=== PATIENT | male | born 1955 | race Two or more races ===

== ENCOUNTER 2019-12-25 16:36 | Inpatient (IN) | payer OTHER ==
[~2019-12-25] VITALS: Ht 172.7 cm; Wt 98.9 kg
[2019-12-25] MEDS ORDERED: SODIUM CHLORIDE 0.9% 500 ML IV ONE (18:06)
[2019-12-25 18:07] LABS: Basophils # (auto) 0 10 ^3/uL (0-0.2); Basophils % (auto) 0.3 % (0.0-2.0); Eosinophils # (auto) 0.1 10 ^3/uL (0-0.8); Hematocrit 44.7 % (41.0-53.0); Hemoglobin 15.3 g/dL (13.5-17.5); Lymphocytes # (auto) 3.9 10 ^3/uL (0.4-5.4); Lymphocytes % (auto) 33.7 % (10.0-50.0); Mean Corpuscular Hemoglobin 29.9 pg (28.0-32.0); Mean Corpuscular Hgb Conc. 34.3 g/dL (32.0-36.0); Mean Corpuscular Volume 87.4 fL (80.0-100.0); Monocytes # (auto) 0.9 10 ^3/uL (0-1.3); Monocytes % (auto) 7.6 % (0.0-12.0); Neutrophils # (auto) 6.7 10 ^3/uL (1.6-8.6); Neutrophils % (auto) 57.4 % (37.0-80.0); Nucleated Red Blood Cells % 0.1 %; Platelet Count (auto) 325 10^3/uL (140-450); Red Blood Cells 5.11 10^6/uL (4.5-5.90); Red Cell Distribution Width 15.3 % (11.8-14.3); White Blood Cell 11.7 10^3/uL (4.4-10.8)
[2019-12-25 18:11] LABS: Lactic Acid w/Reflex 3.2 mmol/L (0.4-2.0)
[2019-12-25 18:24] LABS: Albumin 4.2 g/dL (3.4-5.0); Potassium 3.8 mmol/L (3.5-5.1)
[2019-12-25 18:27] LABS: BUN/Creatinine Ratio 20.3; Bilirubin, Total 0.5 mg/dL (0.2-1.0); Total Protein 8.3 g/dL (6.4-8.2)
[2019-12-25] MEDS ORDERED: NITROGLYCERIN 0.4 MG SL TAB SL PRN (20:15)
[2019-12-25] MEDS ORDERED: VANCOMYCIN PER PHARMACY 0 MG IV SCH (20:30)
[2019-12-25] MEDS ORDERED: CLINDAMYCIN 600MG IV 50 ML IV ONE (20:30)
[2019-12-25] MEDS ORDERED: VANCOMYCIN 1GM/250ML 250 ML IV SCH (22:00)
[2019-12-25] MEDS: VANCOMYCIN 1GM/250ML 250 ML IV SCH (23:02)
[2019-12-25] MEDS: traZODone HCL 50 MG TAB PO SCH (23:02)
[2019-12-25] MEDS: DULoxetine HCL 30 MG CAP PO SCH (23:03)
[2019-12-25 23:24] LABS: INR 1.06 (0.9-1.15); Partial Thromboplastin Time 27.6 sec (23.64-32.05)
[2019-12-26] VITALS (7 sets, daily range): BP systolic 124–185; BP diastolic 57–97
[2019-12-26] MEDS ORDERED: LISI-648 PO (01:45)
[2019-12-26] MEDS ORDERED: DULO20CA PO (01:45)
[2019-12-26] MEDS ORDERED: TRAZ50TA2 PO (01:45)
[2019-12-26] MEDS ORDERED: ACET-1156 PO (01:45)
[2019-12-26] MEDS ORDERED: METF-370 PO (01:45)
[2019-12-26] MEDS ORDERED: ATOR20TA50 PO (01:45)
[2019-12-26 05:13] LABS: Basophils # (auto) 0 10 ^3/uL (0-0.2); Basophils % (auto) 0.2 % (0.0-2.0); Eosinophils # (auto) 0.1 10 ^3/uL (0-0.8); Eosinophils % (auto) 1.1 % (0.0-7.0); Hematocrit 38.5 % (41.0-53.0); Hemoglobin 13.4 g/dL (13.5-17.5); Lymphocytes # (auto) 2.5 10 ^3/uL (0.4-5.4); Lymphocytes % (auto) 29.4 % (10.0-50.0); Mean Corpuscular Hemoglobin 30.3 pg (28.0-32.0); Mean Corpuscular Hgb Conc. 34.7 g/dL (32.0-36.0); Mean Corpuscular Volume 87.3 fL (80.0-100.0); Monocytes # (auto) 0.6 10 ^3/uL (0-1.3); Monocytes % (auto) 7.5 % (0.0-12.0); Neutrophils # (auto) 5.2 10 ^3/uL (1.6-8.6); Neutrophils % (auto) 61.8 % (37.0-80.0); Nucleated Red Blood Cells % 0.1 %; Platelet Count (auto) 250 10^3/uL (140-450); Red Blood Cells 4.41 10^6/uL (4.5-5.90); Red Cell Distribution Width 15.2 % (11.8-14.3); White Blood Cell 8.4 10^3/uL (4.4-10.8)
[2019-12-26] MEDS: metFORMIN HYDROCHLORIDE 500 MG TAB PO SCH ×2 (08:03→17:28)
[2019-12-26] MEDS: LISINOPRIL 10 MG TAB PO SCH (09:34)
[2019-12-26] MEDS: ENOXAPARIN SOD 40 MG/0.4 ML SYRINGE SC SCH (09:34)
[2019-12-26] MEDS: VANCOMYCIN 1GM/250ML 250 ML IV SCH (17:27)
[2019-12-26] MEDS: TAMSULOSIN HYDROCHLORIDE 0.4 MG CAP PO SCH (17:27)
[2019-12-26] MEDS: ACETAMINOPHEN 325 MG TAB PO PRN (20:57)
[2019-12-26] MEDS: traZODone HCL 50 MG TAB PO SCH (21:20)
[2019-12-26] MEDS: ATORVASTATIN 20 MG TAB PO SCH (21:20)
[2019-12-26] MEDS: DULoxetine HCL 30 MG CAP PO SCH (21:21)
[2019-12-26] MEDS ORDERED: cloNIDine HCL 0.1 MG TAB PO PRN (21:30)
[2019-12-27 05:00] VITALS: BP 94/51
[2019-12-27] MEDS: metFORMIN HYDROCHLORIDE 500 MG TAB PO SCH ×2 (08:10→17:21)
[2019-12-27 08:35] VITALS: BP 129/80
[2019-12-27] MEDS: VANCOMYCIN 1GM/250ML 250 ML IV SCH (09:07)
[2019-12-27] MEDS: LISINOPRIL 10 MG TAB PO SCH (09:07)
[2019-12-27] MEDS: ENOXAPARIN SOD 40 MG/0.4 ML SYRINGE SC SCH (09:08)
[2019-12-27] MEDS: ACETAMINOPHEN 325 MG TAB PO PRN ×2 (09:21→14:45)
[2019-12-27 12:35] VITALS: BP 115/77
[2019-12-27 16:42] VITALS: BP 114/69
[2019-12-27] MEDS: TAMSULOSIN HYDROCHLORIDE 0.4 MG CAP PO SCH (17:21)
[2019-12-27 22:00] VITALS: BP 153/91
[2019-12-27] MEDS: ATORVASTATIN 20 MG TAB PO SCH (22:11)
[2019-12-27] MEDS: DULoxetine HCL 30 MG CAP PO SCH (22:11)
[2019-12-27] MEDS: traZODone HCL 50 MG TAB PO SCH (22:11)
[2019-12-28] MEDS: VANCOMYCIN 1GM/250ML 250 ML IV SCH ×2 (04:22→15:34)
[2019-12-28 04:59] VITALS: BP 108/44
[2019-12-28] MEDS: metFORMIN HYDROCHLORIDE 500 MG TAB PO SCH ×2 (08:36→16:55)
[2019-12-28 08:58] VITALS: BP 123/58
[2019-12-28] MEDS: ENOXAPARIN SOD 40 MG/0.4 ML SYRINGE SC SCH (10:07)
[2019-12-28] MEDS: LISINOPRIL 10 MG TAB PO SCH (10:07)
[2019-12-28] MEDS: INSULIN LANTUS (GLARGINE) 1 /0.01ml (100units/ml) SC SCH (10:41)
[2019-12-28 12:12] VITALS: BP 128/70
[2019-12-28 16:49] VITALS: BP 123/82
[2019-12-28] MEDS: TAMSULOSIN HYDROCHLORIDE 0.4 MG CAP PO SCH (17:35)
[2019-12-28] MEDS: ATORVASTATIN 20 MG TAB PO SCH (21:44)
[2019-12-28] MEDS: DULoxetine HCL 30 MG CAP PO SCH (21:45)
[2019-12-28] MEDS: traZODone HCL 50 MG TAB PO SCH (21:45)
[2019-12-28 22:00] VITALS: BP 125/75
[2019-12-29] VITALS (7 sets, daily range): BP systolic 114–140; BP diastolic 66–85
[2019-12-29] MEDS: VANCOMYCIN 1GM/250ML 250 ML IV SCH ×2 (03:46→17:13)
[2019-12-29] MEDS: INSULIN LANTUS (GLARGINE) 1 /0.01ml (100units/ml) SC SCH (10:00)
[2019-12-29] MEDS: metFORMIN HYDROCHLORIDE 500 MG TAB PO SCH ×2 (10:20→18:44)
[2019-12-29] MEDS: LISINOPRIL 10 MG TAB PO SCH (11:03)
[2019-12-29] MEDS: ENOXAPARIN SOD 40 MG/0.4 ML SYRINGE SC SCH (11:04)
[2019-12-29] MEDS: TAMSULOSIN HYDROCHLORIDE 0.4 MG CAP PO SCH (18:45)
[2019-12-29] MEDS: ACETAMINOPHEN 325 MG TAB PO PRN (18:50)
[2019-12-29] MEDS: traZODone HCL 50 MG TAB PO SCH (22:00)
[2019-12-29] MEDS: DULoxetine HCL 30 MG CAP PO SCH (22:00)
[2019-12-29] MEDS: ATORVASTATIN 20 MG TAB PO SCH (22:00)
[2019-12-30] VITALS (7 sets, daily range): BP systolic 112–148; BP diastolic 65–85
[2019-12-30] MEDS: VANCOMYCIN 1GM/250ML 250 ML IV SCH ×2 (02:08→15:39)
[2019-12-30] MEDS ORDERED: LACTULOSE 20Gm/30ML SOLN PO PRN (04:45)
[2019-12-30] MEDS: metFORMIN HYDROCHLORIDE 500 MG TAB PO SCH ×2 (08:34→18:45)
[2019-12-30] MEDS: ENOXAPARIN SOD 40 MG/0.4 ML SYRINGE SC SCH (08:34)
[2019-12-30] MEDS: INSULIN LANTUS (GLARGINE) 1 /0.01ml (100units/ml) SC SCH (08:35)
[2019-12-30] MEDS: LISINOPRIL 10 MG TAB PO SCH (10:00)
[2019-12-30] MEDS: TAMSULOSIN HYDROCHLORIDE 0.4 MG CAP PO SCH (18:45)
[2019-12-30] MEDS: DULoxetine HCL 30 MG CAP PO SCH (22:25)
[2019-12-30] MEDS: ATORVASTATIN 20 MG TAB PO SCH (22:26)
[2019-12-30] MEDS: traZODone HCL 50 MG TAB PO SCH (22:57)
[2019-12-31] MEDS: VANCOMYCIN 1GM/250ML 250 ML IV SCH ×3 (01:12→21:39)
[2019-12-31 05:00] VITALS: BP 124/67
[2019-12-31] MEDS: metFORMIN HYDROCHLORIDE 500 MG TAB PO SCH ×2 (07:59→18:00)
[2019-12-31 09:00] VITALS: BP_SYST 119; BP_SYST 131; BP_DIAS 72; BP_DIAS 78
[2019-12-31] MEDS: LISINOPRIL 10 MG TAB PO SCH (09:57)
[2019-12-31] MEDS: INSULIN LANTUS (GLARGINE) 1 /0.01ml (100units/ml) SC SCH (09:58)
[2019-12-31] MEDS: ENOXAPARIN SOD 40 MG/0.4 ML SYRINGE SC SCH (09:58)
[2019-12-31 12:00] VITALS: BP 126/82
[2019-12-31] MEDS: ACETAMINOPHEN 325 MG TAB PO PRN ×2 (13:45→22:13)
[2019-12-31 17:00] VITALS: BP 129/71
[2019-12-31] MEDS: TAMSULOSIN HYDROCHLORIDE 0.4 MG CAP PO SCH (18:00)
[2019-12-31 20:00] VITALS: BP 110/54
[2019-12-31] MEDS: DULoxetine HCL 30 MG CAP PO SCH (21:39)
[2019-12-31] MEDS: traZODone HCL 50 MG TAB PO SCH (21:39)
[2019-12-31] MEDS: ATORVASTATIN 20 MG TAB PO SCH (21:39)
[2019-12-31 22:00] VITALS: BP 110/54
[2020-01-01 05:01] VITALS: BP 112/61
[2020-01-01] MEDS: VANCOMYCIN 1GM/250ML 250 ML IV SCH ×2 (06:31→17:30)
[2020-01-01 09:00] VITALS: BP 144/85
[2020-01-01] MEDS: LISINOPRIL 10 MG TAB PO SCH (10:45)
[2020-01-01] MEDS: ENOXAPARIN SOD 40 MG/0.4 ML SYRINGE SC SCH (10:45)
[2020-01-01] MEDS: metFORMIN HYDROCHLORIDE 500 MG TAB PO SCH ×2 (10:50→17:30)
[2020-01-01] MEDS: INSULIN LANTUS (GLARGINE) 1 /0.01ml (100units/ml) SC SCH (10:58)
[2020-01-01 12:00] VITALS: BP 126/72
[2020-01-01] MEDS ORDERED: DEXTROSE (50%) 50ML SYRG IV PRN (15:00)
[2020-01-01 16:54] VITALS: BP 118/74
[2020-01-01] MEDS: InsuLIN REG 1unit/0.01ml Soln (100units/ml) SC SCH ×2 (17:20→22:31)
[2020-01-01] MEDS: ACCU-CHEK COMFORT CURVE STRIP VI SCH ×2 (17:20→22:29)
[2020-01-01] MEDS: TAMSULOSIN HYDROCHLORIDE 0.4 MG CAP PO SCH (17:30)
[2020-01-01 20:00] VITALS: BP 108/63
[2020-01-01 22:04] VITALS: BP 108/63
[2020-01-01] MEDS: traZODone HCL 50 MG TAB PO SCH (22:13)
[2020-01-01] MEDS: DULoxetine HCL 30 MG CAP PO SCH (22:13)
[2020-01-01] MEDS: ATORVASTATIN 20 MG TAB PO SCH (22:13)
[2020-01-02] MEDS: VANCOMYCIN 1GM/250ML 250 ML IV SCH ×3 (03:23→23:07)
[2020-01-02 05:00] VITALS: BP 121/82
[2020-01-02] MEDS: ACCU-CHEK COMFORT CURVE STRIP VI SCH ×4 (06:17→23:04)
[2020-01-02] MEDS: InsuLIN REG 1unit/0.01ml Soln (100units/ml) SC SCH ×4 (06:18→23:05)
[2020-01-02 08:00] VITALS: BP 144/85
[2020-01-02] MEDS: ENOXAPARIN SOD 40 MG/0.4 ML SYRINGE SC SCH (08:51)
[2020-01-02] MEDS: INSULIN LANTUS (GLARGINE) 1 /0.01ml (100units/ml) SC SCH (08:52)
[2020-01-02 09:00] VITALS: BP 156/82
[2020-01-02] MEDS: LISINOPRIL 10 MG TAB PO SCH (09:12)
[2020-01-02] MEDS: metFORMIN HYDROCHLORIDE 500 MG TAB PO SCH ×2 (09:12→18:47)
[2020-01-02] MEDS: ACETAMINOPHEN 325 MG TAB PO PRN (12:26)
[2020-01-02 12:53] VITALS: BP 130/60
[2020-01-02 17:13] VITALS: BP 177/66
[2020-01-02] MEDS: TAMSULOSIN HYDROCHLORIDE 0.4 MG CAP PO SCH (18:48)
[2020-01-02 22:00] VITALS: BP 140/74
[2020-01-02] MEDS: DULoxetine HCL 30 MG CAP PO SCH (23:07)
[2020-01-02] MEDS: traZODone HCL 50 MG TAB PO SCH (23:07)
[2020-01-02] MEDS: ATORVASTATIN 20 MG TAB PO SCH (23:07)
[2020-01-03 05:00] VITALS: BP 114/61
[2020-01-03] MEDS: ACCU-CHEK COMFORT CURVE STRIP VI SCH ×4 (06:01→21:52)
[2020-01-03] MEDS: InsuLIN REG 1unit/0.01ml Soln (100units/ml) SC SCH ×4 (06:03→21:55)
[2020-01-03 08:00] VITALS: BP 156/82
[2020-01-03] MEDS: metFORMIN HYDROCHLORIDE 500 MG TAB PO SCH ×2 (08:46→18:25)
[2020-01-03] MEDS: VANCOMYCIN 1GM/250ML 250 ML IV SCH ×2 (08:46→18:25)
[2020-01-03] MEDS: ENOXAPARIN SOD 40 MG/0.4 ML SYRINGE SC SCH (08:47)
[2020-01-03] MEDS: INSULIN LANTUS (GLARGINE) 1 /0.01ml (100units/ml) SC SCH (08:56)
[2020-01-03 09:00] VITALS: BP 104/58
[2020-01-03] MEDS: LISINOPRIL 10 MG TAB PO SCH (09:32)
[2020-01-03 12:38] VITALS: BP 135/80
[2020-01-03 17:00] VITALS: BP 110/73
[2020-01-03] MEDS: TAMSULOSIN HYDROCHLORIDE 0.4 MG CAP PO SCH (18:04)
[2020-01-03] MEDS: ACETAMINOPHEN 325 MG TAB PO PRN (18:26)
[2020-01-03] MEDS: traZODone HCL 50 MG TAB PO SCH (21:51)
[2020-01-03] MEDS: ATORVASTATIN 20 MG TAB PO SCH (21:51)
[2020-01-03] MEDS: DULoxetine HCL 30 MG CAP PO SCH (21:51)
[2020-01-03 22:56] VITALS: BP 143/76
[2020-01-04] MEDS: VANCOMYCIN 1GM/250ML 250 ML IV SCH ×2 (04:40→15:21)
[2020-01-04 05:17] VITALS: BP 100/63
[2020-01-04] MEDS: InsuLIN REG 1unit/0.01ml Soln (100units/ml) SC SCH ×4 (05:47→23:01)
[2020-01-04] MEDS: ACCU-CHEK COMFORT CURVE STRIP VI SCH ×4 (05:47→23:01)
[2020-01-04] MEDS: metFORMIN HYDROCHLORIDE 500 MG TAB PO SCH ×2 (08:16→18:28)
[2020-01-04 08:31] VITALS: BP 130/73
[2020-01-04] MEDS: LISINOPRIL 10 MG TAB PO SCH (09:29)
[2020-01-04] MEDS: ENOXAPARIN SOD 40 MG/0.4 ML SYRINGE SC SCH (09:30)
[2020-01-04] MEDS: INSULIN LANTUS (GLARGINE) 1 /0.01ml (100units/ml) SC SCH (09:41)
[2020-01-04 13:00] VITALS: BP 140/75
[2020-01-04 17:03] VITALS: BP 135/79
[2020-01-04] MEDS: TAMSULOSIN HYDROCHLORIDE 0.4 MG CAP PO SCH (18:29)
[2020-01-04 22:00] VITALS: BP_SYST 100; BP_SYST 117; BP_DIAS 50; BP_DIAS 72
[2020-01-04] MEDS: DULoxetine HCL 30 MG CAP PO SCH (23:03)
[2020-01-04] MEDS: ATORVASTATIN 20 MG TAB PO SCH (23:03)
[2020-01-04] MEDS: traZODone HCL 50 MG TAB PO SCH (23:03)
[2020-01-05] MEDS: VANCOMYCIN 1GM/250ML 250 ML IV SCH ×3 (00:52→21:16)
[2020-01-05 05:00] VITALS: BP 93/61
[2020-01-05] MEDS: ACCU-CHEK COMFORT CURVE STRIP VI SCH ×4 (05:56→21:14)
[2020-01-05] MEDS: InsuLIN REG 1unit/0.01ml Soln (100units/ml) SC SCH ×4 (05:57→21:14)
[2020-01-05] MEDS: metFORMIN HYDROCHLORIDE 500 MG TAB PO SCH ×2 (08:17→17:30)
[2020-01-05 08:53] VITALS: BP 115/72
[2020-01-05] MEDS: ENOXAPARIN SOD 40 MG/0.4 ML SYRINGE SC SCH (10:00)
[2020-01-05] MEDS: LISINOPRIL 10 MG TAB PO SCH (10:55)
[2020-01-05] MEDS: INSULIN LANTUS (GLARGINE) 1 /0.01ml (100units/ml) SC SCH (11:01)
[2020-01-05 13:00] VITALS: BP 143/82
[2020-01-05 17:00] VITALS: BP 118/70
[2020-01-05] MEDS: TAMSULOSIN HYDROCHLORIDE 0.4 MG CAP PO SCH (17:30)
[2020-01-05] MEDS: ACETAMINOPHEN 325 MG TAB PO PRN (19:25)
[2020-01-05] MEDS: ATORVASTATIN 20 MG TAB PO SCH (21:16)
[2020-01-05] MEDS: DULoxetine HCL 30 MG CAP PO SCH (21:16)
[2020-01-05] MEDS: traZODone HCL 50 MG TAB PO SCH (21:16)
[2020-01-05 22:00] VITALS: BP 134/72
[2020-01-06 05:00] VITALS: BP 105/61
[2020-01-06] MEDS: VANCOMYCIN 1GM/250ML 250 ML IV SCH ×2 (06:24→17:22)
[2020-01-06] MEDS: ACCU-CHEK COMFORT CURVE STRIP VI SCH ×4 (06:24→22:20)
[2020-01-06] MEDS: InsuLIN REG 1unit/0.01ml Soln (100units/ml) SC SCH ×4 (06:28→22:19)
[2020-01-06 08:00] VITALS: BP 148/82
[2020-01-06] MEDS: metFORMIN HYDROCHLORIDE 500 MG TAB PO SCH ×2 (08:00→17:22)
[2020-01-06] MEDS ORDERED: ASCORBIC ACID 500 MG TAB PO SCH (10:00)
[2020-01-06] MEDS: CHOLECALCIFEROL (VITD3) 1,000UNIT=25mCg TAB PO SCH (10:45)
[2020-01-06] MEDS: ZINC SULFATE 220mg CAP or TAB PO SCH (10:45)
[2020-01-06] MEDS: ASCORBIC ACID 1,000 MG TAB PO SCH ×2 (10:45→22:22)
[2020-01-06] MEDS: AZITHROMYCIN 250 MG TAB PO SCH (10:46)
[2020-01-06] MEDS: ENOXAPARIN SOD 40 MG/0.4 ML SYRINGE SC SCH (10:46)
[2020-01-06] MEDS: LISINOPRIL 10 MG TAB PO SCH (10:46)
[2020-01-06] MEDS: INSULIN LANTUS (GLARGINE) 1 /0.01ml (100units/ml) SC SCH (10:56)
[2020-01-06 16:55] VITALS: BP 123/74
[2020-01-06] MEDS: TAMSULOSIN HYDROCHLORIDE 0.4 MG CAP PO SCH (17:22)
[2020-01-06] MEDS: ACETAMINOPHEN 325 MG TAB PO PRN (20:17)
[2020-01-06] MEDS: DULoxetine HCL 30 MG CAP PO SCH (22:22)
[2020-01-06] MEDS: ATORVASTATIN 20 MG TAB PO SCH (22:23)
[2020-01-06] MEDS: traZODone HCL 50 MG TAB PO SCH (22:23)
[2020-01-06 23:29] VITALS: BP 136/79
[2020-01-07] MEDS: VANCOMYCIN 1GM/250ML 250 ML IV SCH ×3 (02:23→23:57)
[2020-01-07 05:41] VITALS: BP 130/78
[2020-01-07] MEDS: ACCU-CHEK COMFORT CURVE STRIP VI SCH ×4 (06:27→22:11)
[2020-01-07] MEDS: InsuLIN REG 1unit/0.01ml Soln (100units/ml) SC SCH ×4 (06:27→22:12)
[2020-01-07 08:00] VITALS: BP 135/77
[2020-01-07] MEDS: metFORMIN HYDROCHLORIDE 500 MG TAB PO SCH ×2 (09:01→18:02)
[2020-01-07] MEDS: ZINC SULFATE 220mg CAP or TAB PO SCH (10:03)
[2020-01-07] MEDS: ASCORBIC ACID 1,000 MG TAB PO SCH ×2 (10:03→22:10)
[2020-01-07] MEDS: CHOLECALCIFEROL (VITD3) 1,000UNIT=25mCg TAB PO SCH (10:03)
[2020-01-07] MEDS: LISINOPRIL 10 MG TAB PO SCH (10:04)
[2020-01-07] MEDS: ENOXAPARIN SOD 40 MG/0.4 ML SYRINGE SC SCH (10:04)
[2020-01-07] MEDS: AZITHROMYCIN 250 MG TAB PO SCH (10:04)
[2020-01-07] MEDS: INSULIN LANTUS (GLARGINE) 1 /0.01ml (100units/ml) SC SCH (10:17)
[2020-01-07 12:00] VITALS: BP 138/76
[2020-01-07 17:00] VITALS: BP 106/69
[2020-01-07] MEDS: TAMSULOSIN HYDROCHLORIDE 0.4 MG CAP PO SCH (18:01)
[2020-01-07] MEDS: ACETAMINOPHEN 325 MG TAB PO PRN (20:38)
[2020-01-07 21:35] VITALS: BP 113/69
[2020-01-07] MEDS: traZODone HCL 50 MG TAB PO SCH (22:10)
[2020-01-07] MEDS: ATORVASTATIN 20 MG TAB PO SCH (22:10)
[2020-01-07] MEDS: DULoxetine HCL 30 MG CAP PO SCH (22:10)
[2020-01-08 04:49] VITALS: BP_SYST 108; BP_SYST 130; BP_DIAS 68; BP_DIAS 70
[2020-01-08] MEDS: ACCU-CHEK COMFORT CURVE STRIP VI SCH ×4 (06:09→21:42)
[2020-01-08] MEDS: InsuLIN REG 1unit/0.01ml Soln (100units/ml) SC SCH ×4 (06:10→21:43)
[2020-01-08] MEDS: metFORMIN HYDROCHLORIDE 500 MG TAB PO SCH ×2 (08:38→17:14)
[2020-01-08] MEDS: VANCOMYCIN 1GM/250ML 250 ML IV SCH ×2 (08:38→19:19)
[2020-01-08] MEDS: CHOLECALCIFEROL (VITD3) 1,000UNIT=25mCg TAB PO SCH (08:39)
[2020-01-08] MEDS: ASCORBIC ACID 1,000 MG TAB PO SCH ×2 (08:39→21:24)
[2020-01-08] MEDS: AZITHROMYCIN 250 MG TAB PO SCH (08:39)
[2020-01-08] MEDS: ZINC SULFATE 220mg CAP or TAB PO SCH (08:39)
[2020-01-08] MEDS: LISINOPRIL 10 MG TAB PO SCH (08:40)
[2020-01-08] MEDS: ENOXAPARIN SOD 40 MG/0.4 ML SYRINGE SC SCH (08:40)
[2020-01-08 09:00] VITALS: BP_SYST 101; BP_SYST 124; BP_DIAS 64; BP_DIAS 67
[2020-01-08] MEDS: INSULIN LANTUS (GLARGINE) 1 /0.01ml (100units/ml) SC SCH ×2 (10:26→19:26)
[2020-01-08 17:00] VITALS: BP 125/67
[2020-01-08] MEDS: TAMSULOSIN HYDROCHLORIDE 0.4 MG CAP PO SCH (17:15)
[2020-01-08] MEDS: DULoxetine HCL 30 MG CAP PO SCH (21:22)
[2020-01-08] MEDS: ATORVASTATIN 20 MG TAB PO SCH (21:23)
[2020-01-08] MEDS: traZODone HCL 50 MG TAB PO SCH (21:23)
[2020-01-08 23:18] VITALS: BP 122/72
[2020-01-09] VITALS (7 sets, daily range): BP systolic 107–136; BP diastolic 60–85
[2020-01-09] MEDS: VANCOMYCIN 1GM/250ML 250 ML IV SCH ×2 (04:59→15:00)
[2020-01-09] MEDS: ACCU-CHEK COMFORT CURVE STRIP VI SCH ×4 (06:44→22:00)
[2020-01-09] MEDS: InsuLIN REG 1unit/0.01ml Soln (100units/ml) SC SCH ×4 (06:45→22:00)
[2020-01-09] MEDS: ZINC SULFATE 220mg CAP or TAB PO SCH (08:53)
[2020-01-09] MEDS: ASCORBIC ACID 1,000 MG TAB PO SCH ×2 (08:53→22:00)
[2020-01-09] MEDS: metFORMIN HYDROCHLORIDE 500 MG TAB PO SCH (08:53)
[2020-01-09] MEDS: AZITHROMYCIN 250 MG TAB PO SCH (08:56)
[2020-01-09] MEDS: CHOLECALCIFEROL (VITD3) 1,000UNIT=25mCg TAB PO SCH (08:56)
[2020-01-09] MEDS: ENOXAPARIN SOD 40 MG/0.4 ML SYRINGE SC SCH (08:57)
[2020-01-09] MEDS: INSULIN LANTUS (GLARGINE) 1 /0.01ml (100units/ml) SC SCH (08:58)
[2020-01-09] MEDS: LISINOPRIL 10 MG TAB PO SCH (10:00)
[2020-01-09] MEDS: TAMSULOSIN HYDROCHLORIDE 0.4 MG CAP PO SCH (17:30)
[2020-01-09] MEDS: DULoxetine HCL 30 MG CAP PO SCH (22:00)
[2020-01-09] MEDS: ATORVASTATIN 20 MG TAB PO SCH (22:00)
[2020-01-09] MEDS: traZODone HCL 50 MG TAB PO SCH (22:00)
[2020-01-10] MEDS: VANCOMYCIN 1GM/250ML 250 ML IV SCH ×2 (01:00→12:40)
[2020-01-10] MEDS: ACETAMINOPHEN 325 MG TAB PO PRN ×2 (01:50→13:03)
[2020-01-10] MEDS: InsuLIN REG 1unit/0.01ml Soln (100units/ml) SC SCH ×4 (06:15→21:51)
[2020-01-10] MEDS: ACCU-CHEK COMFORT CURVE STRIP VI SCH ×4 (06:15→21:51)
[2020-01-10 06:23] VITALS: BP 127/82
[2020-01-10 08:00] VITALS: BP 112/72
[2020-01-10 09:00] VITALS: BP 112/72
[2020-01-10] MEDS: metFORMIN HYDROCHLORIDE 500 MG TAB PO SCH ×3 (09:15→16:57)
[2020-01-10] MEDS: AZITHROMYCIN 250 MG TAB PO SCH (09:15)
[2020-01-10] MEDS: ENOXAPARIN SOD 40 MG/0.4 ML SYRINGE SC SCH (09:16)
[2020-01-10] MEDS: CHOLECALCIFEROL (VITD3) 1,000UNIT=25mCg TAB PO SCH (10:00)
[2020-01-10] MEDS: ASCORBIC ACID 1,000 MG TAB PO SCH (10:00)
[2020-01-10] MEDS: ZINC SULFATE 220mg CAP or TAB PO SCH (10:00)
[2020-01-10] MEDS: LISINOPRIL 10 MG TAB PO SCH (10:57)
[2020-01-10] MEDS: INSULIN LANTUS (GLARGINE) 1 /0.01ml (100units/ml) SC SCH (10:59)
[2020-01-10 13:00] VITALS: BP 118/74
[2020-01-10 16:49] VITALS: BP 97/66
[2020-01-10] MEDS: TAMSULOSIN HYDROCHLORIDE 0.4 MG CAP PO SCH (17:29)
[2020-01-10] MEDS: ASCORBIC ACID 500 MG TAB PO SCH (21:36)
[2020-01-10] MEDS: traZODone HCL 50 MG TAB PO SCH (21:36)
[2020-01-10] MEDS: DULoxetine HCL 30 MG CAP PO SCH (21:36)
[2020-01-10] MEDS: ATORVASTATIN 20 MG TAB PO SCH (21:36)
[2020-01-10 22:00] VITALS: BP 135/84
[2020-01-11] MEDS ORDERED: VANCOMYCIN 1GM/250ML 250 ML IV SCH (02:00)
[2020-01-11 05:00] VITALS: BP 112/71
[2020-01-11 06:26] LABS: Basophils # (auto) 0 10 ^3/uL (0-0.2); Basophils % (auto) 0.5 % (0.0-2.0); Eosinophils # (auto) 0.2 10 ^3/uL (0-0.8); Eosinophils % (auto) 3.4 % (0.0-7.0); Hematocrit 40.2 % (41.0-53.0); Hemoglobin 13.7 g/dL (13.5-17.5); Lymphocytes # (auto) 2.2 10 ^3/uL (0.4-5.4); Lymphocytes % (auto) 32.1 % (10.0-50.0); Mean Corpuscular Hemoglobin 30.1 pg (28.0-32.0); Mean Corpuscular Hgb Conc. 34.2 g/dL (32.0-36.0); Monocytes # (auto) 0.6 10 ^3/uL (0-1.3); Monocytes % (auto) 8.4 % (0.0-12.0); Neutrophils # (auto) 3.9 10 ^3/uL (1.6-8.6); Neutrophils % (auto) 55.6 % (37.0-80.0); Platelet Count (auto) 283 10^3/uL (140-450); Red Blood Cells 4.56 10^6/uL (4.5-5.90); Red Cell Distribution Width 15.2 % (11.8-14.3)
[2020-01-11] MEDS: InsuLIN REG 1unit/0.01ml Soln (100units/ml) SC SCH ×2 (06:29→12:18)
[2020-01-11] MEDS: ACCU-CHEK COMFORT CURVE STRIP VI SCH ×2 (06:29→11:30)
[2020-01-11 06:34] LABS: Albumin 3.2 g/dL (3.4-5.0); Potassium 3.9 mmol/L (3.5-5.1)
[2020-01-11 06:40] LABS: BUN/Creatinine Ratio 17.9; Bilirubin, Total 0.6 mg/dL (0.2-1.0); Total Protein 6.9 g/dL (6.4-8.2)
[2020-01-11 08:00] VITALS: BP 115/72
[2020-01-11] MEDS: metFORMIN HYDROCHLORIDE 500 MG TAB PO SCH (08:01)
[2020-01-11 09:00] VITALS: BP 115/72
[2020-01-11] MEDS: CHOLECALCIFEROL (VITD3) 1,000UNIT=25mCg TAB PO SCH (10:00)
[2020-01-11] MEDS: ASCORBIC ACID 500 MG TAB PO SCH (10:00)
[2020-01-11] MEDS: ZINC SULFATE 220mg CAP or TAB PO SCH (10:00)
[2020-01-11] MEDS: AZITHROMYCIN 250 MG TAB PO SCH (10:01)
[2020-01-11] MEDS: ENOXAPARIN SOD 40 MG/0.4 ML SYRINGE SC SCH (10:02)
[2020-01-11] MEDS: INSULIN LANTUS (GLARGINE) 1 /0.01ml (100units/ml) SC SCH (10:06)
[2020-01-11] MEDS: LISINOPRIL 10 MG TAB PO SCH (10:42)
[2020-01-11] MEDS ORDERED: INSLANTI SC (10:56)
[2020-01-11] MEDS ORDERED: LEVO500T21 PO (10:56)
[2020-01-11] MEDS ORDERED: TAM04C PO (10:56)
[2020-01-11 12:14] VITALS: BP 115/72
[2020-01-11 13:00] VITALS: BP 136/70
== END 2020-01-11 14:30 | DRG 637 ==
LOC: EEVIPCON 16:36 → ER 16:36 → WEST WING 16:37 → EAST 12-26 20:14 → WEST WING 01-09 20:33
PROVIDERS: ADMIT Internal Medicine; ATTEND Internal Medicine
DX: E11.621 Type 2 diabetes mellitus with foot ulcer (principal); U07.1 COVID-19; I16.9 Hypertensive crisis, unspecified; M86.60 Other chronic osteomyelitis, unspecified site; L97.509 Non-pressure chronic ulcer of other part of unspecified foot with unspecified severity; Z88.8 Allergy status to other drugs, medicaments and biological substances; E78.00 Pure hypercholesterolemia, unspecified; I10 Essential (primary) hypertension; J45.909 Unspecified asthma, uncomplicated; Z79.4 Long term (current) use of insulin; Z83.3 Family history of diabetes mellitus; E11.69 Type 2 diabetes mellitus with other specified complication; F41.9 Anxiety disorder, unspecified
CPT/HCPCS: 36415; 71045; 73700; 73718; 80053; 80202; 82565; 82962; 83605; 85025; 85610; 85730; 87040; 87081; 87205; 94760; 96361; 96375; G0378; J1815; J3490